=== PATIENT | male | born 1975 | race Hispanic/Latino ===

== ENCOUNTER 2021-03-18 14:58 | Emergency (ER) | payer OTHER ==
[~2021-03-18] VITALS: Ht 172.7 cm; Wt 63.5 kg
[2021-03-18 15:00] VITALS: BP 117/62
[2021-03-18] MEDS ORDERED: KETOROLAC 30MG VIAL (30MG/ML) IM ONE (18:00)
[2021-03-18] MEDS ORDERED: HYDROCODONE/ACETAMINOPHEN 5/325 MG TAB PO ONE (18:00)
[2021-03-18] MEDS ORDERED: ACET1TAB25 PO (18:26)
[2021-03-18] MEDS ORDERED: IBUP-2070 PO (18:26)
[2021-03-18 18:46] VITALS: BP 117/62
== END 2021-03-18 18:49 | disposition home or self-care (01) ==
LOC: EDH 14:58
DX: S62.396A Other fracture of fifth metacarpal bone, right hand, initial encounter for closed fracture (principal); Z79.1 Long term (current) use of non-steroidal anti-inflammatories (NSAID); W22.01XA Walked into wall, initial encounter; Y93.89 Activity, other specified; Y92.89 Other specified places as the place of occurrence of the external cause; Y99.8 Other external cause status
CPT/HCPCS: 29125; 73130; 96372; 99283; J1885